=== PATIENT | male | born 1965 | race Caucasian/White ===

== ENCOUNTER 2025-08-16 12:13 | Day surgery (SDC) | payer MEDICARE ==
[~2025-08-16] VITALS: Ht 177.8 cm; Wt 101.1 kg
[2025-08-16] MEDS ORDERED: GABAPENTIN600 MG PO (12:48)
[2025-08-16] MEDS ORDERED: CYCL10 PO (12:49)
[2025-08-16] MEDS ORDERED: ALLOPURINOL100 M1 PO (12:49)
[2025-08-16] MEDS ORDERED: TRAZ100 PO (12:49)
[2025-08-16] MEDS ORDERED: K-Dur10 MEQ (12:50)
[2025-08-16] MEDS ORDERED: metoprolol succinate (12:50)
[2025-08-16] MEDS ORDERED: LISI20 PO (12:50)
[2025-08-16] MEDS ORDERED: MICROZIDE12.5 MG PO (12:51)
[2025-08-16] MEDS ORDERED: EUTHYROX75 MC1 PO (12:51)
[2025-08-16] MEDS ORDERED: DESVENLAFAXINE50 M3 PO (12:52)
[2025-08-16] MEDS ORDERED: BUPROPION XL150 M1 PO (12:52)
--- NOTE | 2025-08-16 13:14 | NUR ---
08/16/25 1314 MELVIN SHEN DENIES QUESTIONS/NEEDS AT THIS TIME. RESTING ON GURNEY, RAILS UP, BRAKES LOCKED, CALL LIGHT IN REACH
[2025-08-16] MEDS ORDERED: CeFAZolin Sodium 2,000 MG VIAL ONE (13:17)
[2025-08-16] MEDS ORDERED: Lidocaine HCl 2% 10 ML SDA ONE (13:38)
[2025-08-16] MEDS ORDERED: Bupivacaine 0.5% W/EPI 1:200000 SDV 30 ML Vial ONE (13:38)
[2025-08-16] MEDS ORDERED: Midazolam HCl 1MG / ML 2ML Vial ONE (13:50)
[2025-08-16] MEDS ORDERED: FentaNYL Citrate 50 MCG/ML 2 ML Injection ONE (13:50)
== END 2025-08-16 15:03 | disposition home or self-care (01) ==
LOC: ORSCSDS 12:13
PROVIDERS: Podiatrist Foot & Ankle Surgery
PROC: 0Y6S0Z1 Detachment at Left 2nd Toe, High, Open Approach (ICD-10-PCS; principal; 2025-08-16 14:00)
DX: M19.171 Post-traumatic osteoarthritis, right ankle and foot (principal); M79.671 Pain in right foot; L85.9 Epidermal thickening, unspecified; I10 Essential (primary) hypertension; F32.A Depression, unspecified; Z79.899 Other long term (current) drug therapy; E03.9 Hypothyroidism, unspecified; K76.9 Liver disease, unspecified; F17.220 Nicotine dependence, chewing tobacco, uncomplicated
CPT/HCPCS: 88305; 88311; J0690; J2003; J2250; J2704; J3010